=== PATIENT | male | born 1990 | race African-American/Black ===

== ENCOUNTER 2022-10-10 00:58 | Emergency (ER) | payer SELFPAY ==
[2022-10-10] VITALS (14 sets, daily range): BP systolic 148–187; BP diastolic 82–115; PULSE 106–120; RESP 13–22; TEMP 37.8–38.1; O2SAT 99–100
--- NOTE | 2022-10-10 01:06 | ECG_ITS ---
Measurements Intervals [place] Rate: 102 P: 65 [place]: 146 QRS: 85 QRSD: 89 T: 45 QT: 319 QTc: 416 Interpretive Statements SINUS TACHYCARDIA NONSPECIFIC T-WAVE ABNORMALITY BORDERLINE ECG NO PREVIOUS ECG AVAILABLE FOR COMPARISON Electronically Signed On 10-10-2022 16:50:26 [employer] by Cooper Tran M.D.
[2022-10-10 01:13] LABS: Glucose Point of Care 349 mg/dl (65-105)
--- NOTE | 2022-10-10 01:15 | ED.GENADULT ---
HPI - General Adult General Chief complaint: Unspecified Stated complaint: HYPERGLYCEMIA Time Seen by Provider: 10/10/22 01:02 History of Present Illness HPI narrative: 32-year-old male with history of diabetes and hypertension presenting the emergency department for evaluation of not feeling well. Patient states he has been out of his long-acting insulin and out of his blood pressure meds for the last few weeks. Patient states he has refills available but cannot afford the refills. Patient is having to get a primary care physician in [place] as patient has recently moved from [place]. Related Data Allergies Allergy/AdvReac Type Severity Reaction Status Date / Time No Known Allergies Allergy Verified 10/10/22 01:21 Review of Systems Review of Systems: CONSTITUTIONAL: Generalized fatigue and subjective fever EYES: Denies visual changes, redness, or discharge. ENT: Denies rhinorrhea, congestion, sore throat, or otalgia. CARDIOVASCULAR: Denies chest pain, palpitations, or edema. RESPIRATORY: Denies cough or dyspnea. GASTROINTESTINAL: Denies abdominal pain, nausea, vomiting, or diarrhea. GENITOURINARY: Denies dysuria or hematuria. SKIN: Denies rash or itching. MUSCULOSKELETAL: Denies back pain, joint pain, or myalgia. NEUROLOGIC: Denies headache, numbness, or weakness. Exam Narrative: APPEARANCE: Well appearing, no pain, no distress, well-nourished. HEAD: normocephalic, atraumatic. EYES: PERRLA/EOMI, conjunctivae clear. NOSE: Normal no drainage EARS:TMS clear with good light reflex. THROAT: Pharynx clear, no exudate. NECK: Supple. No adenopathy, no masses. RESPIRATORY: Airway patent, respirations nonlabored. Clear to auscultation bilaterally, no rales, rhonchi, wheezing. CARDIOVASCULAR: Tachycardia ABDOMINAL: Soft, nontender, nondistended, normal bowel sounds MUSCULOSKELETAL: Moves all extremities. Strength/ROM intact, No edema, No calf tenderness. NEURO: Alert. Cranial nerves II through XII intact. Grossly intact SKIN: Warm, dry. Normal Color Course Course Emergency Course: Patient was not in DKA. Patient's blood sugar did improve significantly with rehydration and insulin. Patient did have a low-grade fever but did not have a leukocytosis. Patient did test positive for influenza A. Patient's electrolytes were within normal notes. Patient's hemoglobin A1c was 9.6. UA shows no evidence of a urinary tract infection. Patient was updated the results of his work-up. Patient will be provided medical follow-up with Dr. Alvarado. Patient was encouraged to call to seek help with obtaining his blood pressure medications and has long-acting insulin. Vital Signs Vital signs: Vital Signs Temperature 100.0 F H 10/10/22 00:54 Pulse Rate 106 H 10/10/22 00:54 Respiratory Rate 16 10/10/22 00:54 Blood Pressure 187/115 H 10/10/22 00:54 Pulse Oximetry 100 10/10/22 00:54 Oxygen Delivery Room Air 10/10/22 00:54 Temperature 100.2 F H 10/10/22 02:30 Pulse Rate 114 H 10/10/22 02:31 Respiratory Rate 13 10/10/22 03:45 Blood Pressure 148/82 H 10/10/22 03:16 Pulse Oximetry 100 10/10/22 03:37 Oxygen Delivery Room Air 10/10/22 00:54 Medical Decision Making Vital Signs Vital Signs: Vital Signs Temperature 100.0 F H 10/10/22 00:54 Pulse Rate 106 H 10/10/22 00:54 Respiratory Rate 16 10/10/22 00:54 Blood Pressure 187/115 H 10/10/22 00:54 Pulse Oximetry 100 10/10/22 00:54 Oxygen Delivery Room Air 10/10/22 00:54 Temperature 100.2 F H 10/10/22 02:30 Pulse Rate 114 H 10/10/22 02:31 Respiratory Rate 13 10/10/22 03:45 Blood Pressure 148/82 H 10/10/22 03:16 Pulse Oximetry 100 10/10/22 03:37 Oxygen Delivery Room Air 10/10/22 00:54 Lab Data Lab results reviewed: Yes I reviewed the patient's lab results. 10/10/22 01:14 10/10/22 01:14 Labs: Lab Results 10/10/22 10/10/22 10/10/22 Range/Units 01:10 01:14 01:14 WBC 6.4 (4.5-10
[2022-10-10 01:20] LABS: Basophils Percent Auto 0.3 % (0.2-1.2); Eosinophils Percent Auto 0.2 % (0-4.4); Hematocrit 33.6 % (42.0-52.0); Hemoglobin 11.4 g/dL (14.0-18.0); Immature Granulocyte Absolute 0.01 K/mm3 (0.00-0.031); Immature Granulocyte Percent A 0.2 % (0-0.5); Lymphocytes Absolute Auto 0.52 K/mm3 (0.9-3.2); Lymphocytes Percent Auto 8.2 % (18.3-44.2); Mean Corpuscular HGB Conc 33.9 g/dl (32-36); Mean Corpuscular Hemoglobin 26.1 pg (26-34); Mean Corpuscular Volume 77.1 fl (80-100); Mean Platelet Volume 11.1 fl (7.4-10.4); Monocytes Absolute Auto 0.8 K/mm3 (0.1-0.6); Monocytes Percent Auto 12.3 % (2.6-8.5); Neutrophils Percent Auto 78.8 % (45.5-73.1); Platelet Count Result 239 k/mm3 (150-375); Red Blood Count 4.36 M/mm3 (4.6-6.20); Red Cell Distribution Width 12.9 % (11.5-14.5); White Blood Count 6.4 K/mm3 (4.5-10.0)
[2022-10-10] MEDS: hydrALAZINE HCL 20 MG/ML VIAL 10 MG IV PUSH (01:22)
[2022-10-10] MEDS: SODIUM CHLORIDE 0.9% IV 1,000 ML 999 ML IV CONT ×2 (01:22→02:03)
[2022-10-10] MEDS: INSULIN HUMAN REGULAR (*BKC) 100 UNITS/ML 7 UNITS IV PUSH (01:25)
[2022-10-10 01:35] LABS: Lactic Acid Reflex 1.3 mmol/L (0.7-2.0)
[2022-10-10 01:36] LABS: Alanine Aminotransferase 17 U/L (6-50); Albumin Level 3.1 g/dL (3.5-5.1); Alkaline Phosphatase 138 U/L (38-126); Anion Gap 3 mmol/L (8-16); Aspartate Amino Transferase 26 U/L (17-59); Bilirubin,Total 0.6 mg/dL (0.2-1.3); Blood Urea Nitrogen 18 mg/dL (9-20); Calcium 8.2 mg/dL (8.4-10.2); Carbon Dioxide 25 mmol/L (22-30); Chloride 103 mmol/L (98-107); Estimated CRCL calculation 53 ml/min; Estimated Glomerular Filt Rate 54; Glucose 349 mg/dL (65-110); Sodium 131 mmol/L (137-145)
[2022-10-10 01:37] LABS: Hemoglobin A1C 9.6 % (<5.7)
[2022-10-10 01:53] LABS: Add Urine Microscopic? YES; Appearance Urine Clear (Clear); Bilirubin Urine 1+ (Negative); Blood Urine 3+ (Negative); Color Urine Yellow (Yellow); Glucose Urine UA 3+ mg/dL (Negative); Ketones Urine Trace mg/dL (Negative); Leukocyte Esterase Ur Negative LEU/UL (Negative); Nitrate Urine Negative (Negative); Protein Urine 3+ mg/dL (Negative); Urobilinogen Urine 0.2 mg/dL (<2.0)
[2022-10-10 01:59] LABS: Influenza A QL RT-PCR Positive (Negative); Influenza B QL RT-PCR Negative (Negative); RSV RNA, RT-PCR Negative (Negative); SARS-CoV-2 RNA PCR Negative
[2022-10-10 02:11] LABS: Mucus Urine Rare /lpf; RBC Urine 51-75 /hpf (0-2); Squamous Epithelial Cell Urine Rare /hpf (Few); WBC Urine 0-3 /hpf
[2022-10-10 02:51] LABS: Glucose Point of Care 128 mg/dl (65-105)
--- NOTE | 2022-10-10 02:54 | PC.NURSE ---
Patient report received from PHYLLIS Hawkins. Assumed care of patient at this time.
[2022-10-10 03:11] LABS: Glucose Point of Care 116 mg/dl (65-105)
== END 2022-10-10 04:04 | disposition home or self-care (01) ==
PROVIDERS: Emergency Provider Emergency Medicine
DX: E11.65 Type 2 diabetes mellitus with hyperglycemia (principal); J10.1 Influenza due to other identified influenza virus with other respiratory manifestations; I10 Essential (primary) hypertension; T38.3X6A Underdosing of insulin and oral hypoglycemic [antidiabetic] drugs, initial encounter; T46.5X6A Underdosing of other antihypertensive drugs, initial encounter; Z91.120 Patient's intentional underdosing of medication regimen due to financial hardship; Z20.822 Contact with and (suspected) exposure to COVID-19; Z79.4 Long term (current) use of insulin; R00.0 Tachycardia, unspecified; R94.31 Abnormal electrocardiogram [ECG] [EKG]
CPT/HCPCS: 36415; 80053; 81001; 82010; 82948; 83036; 83605; 85025; 87637; 93005; 96361; 96365; 96375; 99284; J0131; J0360; J1815; J7030